=== PATIENT | male | born 1975 | race Caucasian/White ===

== ENCOUNTER 2021-02-20 08:28 | Day surgery (SDC) | payer OTHER, SELFPAY ==
[2021-02-19 09:25] VITALS: BMI 20.3
[2021-02-20 09:43] LABS: SARS-CoV-2 NAA Rapid Test Not Detected (NotDetected)
[2021-02-20] MEDS ORDERED: Ketorolac Tromethamine 30 MG/ML VIAL ONE (10:03)
[2021-02-20] MEDS ORDERED: EPINEPHrine 1 MG/ML AMP ONE (10:31)
[2021-02-20] MEDS ORDERED: Lidocaine 1% w/Epinephrine 1:100K 20 ML VIAL ONE (10:31)
[2021-02-20] MEDS ORDERED: Fentanyl 100 MCG/2 ML VIAL ONE ×2 (10:31→12:18)
[2021-02-20] MEDS ORDERED: Dexamethasone 20 MG/5 ML VIAL ONE (10:49)
[2021-02-20] MEDS ORDERED: Glycopyrrolate 0.2 MG/ML 5 ML SYRINGE ONE (10:49)
[2021-02-20] MEDS ORDERED: Ondansetron PF 4 MG/2 ML Vial ONE (10:49)
[2021-02-20] MEDS ORDERED: PROPOFOL 200 MG/20 ML VIAL ONE (10:49)
[2021-02-20] MEDS ORDERED: Rocuronium Bromide 10 MG/ML (10ML VIAL) ONE (10:49)
[2021-02-20] MEDS ORDERED: Lidocaine 1% PF 5 ML VIAL ONE (10:49)
[2021-02-20] MEDS ORDERED: Hydrocodone-Acetamin 15 ML UDCUP ONE (13:08)
== END 2021-02-20 14:15 | disposition home or self-care (01) ==
LOC: SDC 08:28
PROVIDERS: ATTEND Specialist
PROC: 0CBS8ZX Excision of Larynx, Via Natural or Artificial Opening Endoscopic, Diagnostic (ICD-10-PCS; principal; 2021-02-20)
DX: C01 Malignant neoplasm of base of tongue (principal); K14.8 Other diseases of tongue; F17.200 Nicotine dependence, unspecified, uncomplicated; Z79.899 Other long term (current) drug therapy; Z91.041 Radiographic dye allergy status
CPT/HCPCS: 88305; 88331; 88334; 88341; 88342; 93005; 93010; J0171; J1100; J1885; J2405; J2704; J3010; U0002